=== PATIENT | male | born 1930 | race Caucasian/White ===

== ENCOUNTER 2020-05-06 14:30 | Emergency (ER) | payer MEDICARE, OTHER ==
[~2020-05-06] VITALS: Ht 177.8 cm; Wt 80.2 kg
--- NOTE | 2020-05-06 14:48 | PHYS DOC ---
Past History Past Medical History: A-Fib, High Cholesterol, Hypertension Smoking: Non-smoker Alcohol Use: None Drug Use: None General Adult EDM: Chief Complaint: MECHANICAL FALL HPI: HPI: Patient is a 89-year-old male who felt dizzy and had a syncopal event at [facility] today. Patient fell and hit his left side of his face. Patient has a history of A. fib and is anticoagulated. Patient denies any recent illnesses such as fever, chills, cough, vomiting, diarrhea or blood in the stools. Patient describes mild pain on the left side of his face. Patient does have some nausea now Review of Systems: Review of Systems: Constitutional: Denies fever or chills Eyes: Denies change in visual acuity HENT: Denies nasal congestion or sore throat Respiratory: Denies cough or shortness of breath Cardiovascular: Denies chest pain or edema GI: Denies abdominal pain, , vomiting, bloody stools or diarrhea, patient does have some nausea : Denies dysuria Musculoskeletal: Denies back pain or joint pain Integument: Denies rash Neurologic: Complains of mild headache but no focal weakness or sensory changes Endocrine: Denies polyuria or polydipsia Lymphatic: Denies swollen glands Psychiatric: Denies depression or anxiety Current Medications: Current Meds: Current Medications Ondansetron HCl (Zofran) 4 mg 1X ONCE IVP Last administered on 05/06/20at 15:42; Start 05/06/20 at 15:15; Stop 05/06/20 at 15:16; Status DC Allergies: Allergies: Allergies Coded Allergies Type Severity Reaction Last Updated Verified Sfetlsv-Cya-Qco Reductase Inhibitor Allergy Unknown 05/06/20 Yes Physical Exam: PE: Constitutional: Well developed, well nourished, no acute distress, non-toxic appearance. [] HENT: Small abrasion to the left side of the face., No trismus, no malocclusion, no septal hematoma, dried blood present in both nares. Swelling to the left side of the face with some ecchymosis. No obvious hemotympanum Eyes: PERRLA, EOMI, conjunctiva normal, no discharge. [] Neck: Normal range of motion, no tenderness, supple, no stridor. [] Cardiovascular: Bradycardic, irregularly irregular, peripheral pulses intact Lungs & Thorax: Bilateral breath sounds clear, no respiratory distress Abdomen: soft, no tenderness, no masses, no pulsatile masses. [] Skin: Warm, dry, no erythema, no rash. Abrasion to left side of face Back: No tenderness, no CVA tenderness. [] Extremities: Small abrasion right elbow, no cyanosis, no clubbing, ROM intact, no edema. [] Neurologic: Alert and oriented X 3, normal motor function, normal sensory function, no focal deficits noted. [] Psychologic: Affect normal, judgement normal, mood normal. [] Current Patient Data: Labs: Laboratory Tests Test 05/06/20 14:45 White Blood Count 4.6 x10^3/uL Red Blood Count 3.49 x10^6/uL Hemoglobin 10.0 g/dL Hematocrit 31.0 % Mean Corpuscular Volume 89 fL Mean Corpuscular Hemoglobin 29 pg Mean Corpuscular Hemoglobin Concent 32 g/dL Red Cell Distribution Width 19.8 % Platelet Count 206 x10^3/uL Neutrophils (%) (Auto) 61 % Lymphocytes (%) (Auto) 28 % Monocytes (%) (Auto) 10 % Eosinophils (%) (Auto) 1 % Basophils (%) (Auto) 1 % Neutrophils # (Auto) 2.8 x10^3uL Lymphocytes # (Auto) 1.3 x10^3/uL Monocytes # (Auto) 0.4 x10^3/uL Eosinophils # (Auto) 0.0 x10^3/uL Basophils # (Auto) 0.0 x10^3/uL Prothrombin Time 24.9 SEC Prothromb Time International Ratio 2.5 Activated Partial Thromboplast Time 30 SEC Sodium Level 140 mmol/L Potassium Level 4.6 mmol/L Chloride Level 102 mmol/L Carbon Dioxide Level 31 mmol/L Anion Gap 7 Blood Urea Nitrogen 26 mg/dL Creatinine 1.8 mg/dL Estimated GFR (Cockcroft-Gault) 35.9 BUN/Creatinine Ratio 14 Glucose Level 132 mg/dL Calcium Level 10.2 mg/dL Total Bilirubin 1.7 mg/dL Aspartate Amino Transf (AST/SGOT) 28 U/L Alanine Aminotransferase (ALT/SGPT) 30 U/L Alkaline Phosphatase 201 U/L Troponin I Quantitative < 0.017 ng/mL Total Protein 7.8 g/dL Albumin 2.9 g/dL Albumin/Globulin Ratio 0.6 Current Medications Medications (Trade) Dose Ordered Sig/Romy Route PRN Reason Start Time Stop Time Status Last Admin Dose Admin Ondansetron HCl (Zofran) 4 mg 1X ONCE IVP 05/06/20 15:15 05/06/20 15:16 DC 05/06/20 15:42 Vital Signs: Vital Signs Date Time Temp Pulse Resp B/P (MAP) Pulse Ox O2 Delivery O2 Flow Rate FiO2 05/06/20 14:30 98.4 66 20 182/70 (107) 98 Room Air EKG: EKG: [] EKG interpreted by me atrial fibrillation with a rate of 57 left axis deviation PVCs, nonspecific ST changes Radiology/Procedures: Radiology/Procedures: [][address] [address] IMAGING REPORT Signed PATIENT: THANIA NICOLE ACCOUNT: [id number] : 1930 LOCATION: ER AGE: 89 SEX: M EXAM STATUS: REG ER ORD. PHYSICIAN: HERRERA HIGGINBOTHAM MD REASON: fall, facial injury left side PROCEDURE: CT HEAD AND MAXILLOFACIAL WO Exam: CT head and maxillofacial without contrast INDICATION: Fall, facial injury TECHNIQUE: Sequential axial images through the head and face were obtained without the administration of IV contrast. Comparisons: None FINDINGS: Head: No focal parenchymal lesion or hemorrhage is identified. There is no midline shift or sulcal effacement. Patchy hypodensity in the periventricular white matter. No acute vascular territory infarction is identified. Serrato-white distinction is preserved. The ventricular system is within normal limits without compression hydrocephalus. The basal cisterns are well maintained. Face Extra cranial soft tissue scalp contusion/hematoma overlying the left parietal region. Hemorrhage is noted layering within the left maxillary sinus. There is a comminuted multipart fracture involving the left zygomatic arch. There is fractures involving the anterior, posterior ramos of the left maxillary sinus. Additionally there is a fracture involving the lateral wall of the left orbit. Globes and intraorbital contents are normal. IMPRESSION: 1. Comminuted multipart fracture involving the left sciatic arch. 2. Fractures of the anterior and posterior wall of the left maxillary sinus. Hemorrhage is noted layering within the maxillary sinus. 3. Fracture involving the lateral wall of the left orbit. Globes and intraorbital contents are normal. 4. No acute intracranial abnormality. Exposure: One or more of the following in the visualized dose reduction techniques were utilized for this examination: 1. Automated exposure control 2. Adjustment of the MA and/or KV according to patient size Use of iterative of reconstructive technique Electronically signed by: Lavinia Mcintyre MD (05/06/2020 3:19 PM) [facility]ED WITH [facility] DICTATED AND SIGNED BY: LAVINIA MCINTYRE MD DATE: 05/06/202 CC: HERRERA HIGGINBOTHAM MD; PCP,NO ~ [address] [address] IMAGING REPORT Signed PATIENT: THANIA NICOLE ACCOUNT: [id number] : 1930 LOCATION: ER AGE: 89 SEX: M EXAM STATUS: REG ER ORD. PHYSICIAN: HERRERA HIGGINBOTHAM MD REASON: syncope PROCEDURE: PORTABLE CHEST 1V EXAM: PORTABLE CHEST 1V INDICATION: Reason: syncope / Spl. Instructions: / History: . TECHNIQUE: Single view COMPARISON: None FINDINGS: The heart size is upper normal in size.. The great vessels show aortic calcifications. There is no hilar or mediastinal mass. Lungs show prominence of the pulmonary interstitium bilaterally. There is no pleural effusion or pneumothorax. There are no significant osseous abnormalities. IMPRESSION: Upper normal heart size with prominence of the bilateral pulmonary interstitium, suggestive of pulmonary vascular congestion with interstitial pattern pulmonary edema. Electronically signed by: Marie Morales MD (05/06/2020 3:30 PM) [id number] DICTATED AND SIGNED BY: MARIE MORALES MD DATE: 05/06/20 1535 CC: HERRERA HIGGINBOTHAM MD; PCP,NO ~ [address] [address] IMAGING REPORT Signed PATIENT: THANIA NICOLE ACCOUNT: [id number] : 1930 LOCATION: ER AGE: 89 SEX: M EXAM STATUS: REG ER ORD. PHYSICIAN: HERRERA HIGGINBOTHAM MD REASON: fall, facial trauma PROCEDURE: CT CERVICAL SPINE WO CONTRAST Exam: CT cervical spine without contrast INDICATION: Fall, facial trauma TECHNIQUE: Sequential axial images through the cervical obtained without IV contrast. Sagittal and coronal reformatted images were reconstructed from the axial data and reviewed. Comparisons: None FINDINGS: Vertebral body heights and alignment are well-maintained. Fracture to the cervical spine is not identified. 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 Mild bilateral facet arthropathy is also noted in cervical spine. Small right pleural effusion. IMPRESSION: Negative CT C-spine for acute traumatic injury. Exposure: One or more of the following in the visualized dose reduction techniques were utilized for this examination: 1. Automated exposure control 2. Adjustment of the MA and/or KV according to patient size 3. Use of iterative of reconstructive technique Electronically signed by: Lavinia Mcintyre MD (05/06/2020 4:12 PM) [facility] DICTATED AND SIGNED BY: LAVINIA MCINTYRE MD DATE: 05/06/201611 CC: HERRERA HIGGINBOTHAM MD; PCP,NO ~ Heart Score: Risk Factors: Risk Factors: DM, Current or recent (<one month) smoker, HTN, HLP, family history of CAD, obesity. Risk Scores: Score 0 - 3: 2.5% MACE over next 6 weeks - Discharge Home Score 4 - 6: 20.3% MACE over next 6 weeks - Admit for Clinical Observation Score 7 - 10: 72.7% MACE over next 6 weeks - Early Invasive Strategies Course & Med Decision Making: Course & Med Decision Making Pertinent Labs and Imaging studies reviewed. (See chart for details) [] 89-year-old male with a syncopal event. Patient fell and struck his head. Patient has contusions and small abrasion to the left cheek. CT reveals multiple fractures. Patient will need to be admitted for his syncope and due to the multiple facial fractures will need to be transferred to a trauma center. I discussed the case with Dr. Lara at [facility] who accepted transfer. Head CT done due to patient's age and being on Coumadin. Dragon Disclaimer: Dragon Disclaimer: This electronic medical record was generated, in whole or in part, using a voice recognition dictation system. Departure Departure: Impression: Primary Impression: Syncope Additional Impressions: Multiple facial fractures Head injury Disposition: 02 DC/TRF OTHER SHORT TERM HOS ([facility]) Condition: STABLE HERRERA HIGGINBOTHAM MD May 06, 2020 14:48
[2020-05-06 15:05] LABS: BASO % 1 % (0-3); EOS % 1 % (0-3); LYMPH # 1.3 x10^3/uL (1.0-4.8); LYMPH % 28 % (24-48); MEAN CORPUSCULAR HEMOGLOBIN 29 pg (25-35); MEAN CORPUSCULAR HGB CONC 32 g/dL (31-37); MEAN CORPUSCULAR VOLUME 89 fL (79-100); MONO # 0.4 x10^3/uL (0.0-1.1); MONO % 10 % (0-9); NEUT # 2.8 x10^3uL (1.8-7.7); NEUT % 61 % (31-73); PLATELET COUNT 206 x10^3/uL (140-400); RED BLOOD COUNT 3.49 x10^6/uL (4.30-5.70); RED CELL DISTRIBUTION WIDTH 19.8 % (11.5-14.5); WHITE BLOOD COUNT 4.6 x10^3/uL (4.0-11.0)
--- NOTE | 2020-05-06 15:14 | EKG ---
[address] [address] Test Date: 2020-05-06 Test Time: 14:39:37 Pat Name: THANIA NICOLE Department: Room: Gender: M Apns: ESDRAS : 1930 Requested By: HERRERA HIGGINBOTHAM Order Number: [id number] Reading MD: Measurements Intervals Bryant Rate: 57 P: OH: QRS: -40 QRSD: 108 T: 4 QT: 422 QTc: 414 Interpretive Statements IRREGULAR RHYTHM, NO P-WAVE FOUND VENTRICULAR PREMATURE COMPLEX(ES) ABNORMAL LEFT AXIS DEVIATION LEFT ANTERIOR FASCICULAR BLOCK QRS(T) CONTOUR ABNORMALITY CONSISTENT WITH ANTERIOR INFARCT AGE UNDETERMINED ABNORMAL ECG RI6.02 No previous ECG available for comparison
[2020-05-06] MEDS ORDERED: ONDANSETRON PF 4 MG/2 ML VIAL. IVP ONE (15:15)
--- NOTE | 2020-05-06 15:22 | RAD ---
Exam: CT head and maxillofacial without contrast INDICATION: Fall, facial injury TECHNIQUE: Sequential axial images through the head and face were obtained without the administration of IV contrast. Comparisons: None FINDINGS: Head: No focal parenchymal lesion or hemorrhage is identified. There is no midline shift or sulcal effacement. Patchy hypodensity in the periventricular white matter. No acute vascular territory infarction is identified. Serrato-white distinction is preserved. The ventricular system is within normal limits without compression hydrocephalus. The basal cisterns are well maintained. Face Extra cranial soft tissue scalp contusion/hematoma overlying the left parietal region. Hemorrhage is noted layering within the left maxillary sinus. There is a comminuted multipart fracture involving the left zygomatic arch. There is fractures involving the anterior, posterior ramos of the left maxillary sinus. Additionally there is a fracture involving the lateral wall of the left orbit. Globes and intraorbital contents are normal. IMPRESSION: 1. Comminuted multipart fracture involving the left sciatic arch. 2. Fractures of the anterior and posterior wall of the left maxillary sinus. Hemorrhage is noted layering within the maxillary sinus. 3. Fracture involving the lateral wall of the left orbit. Globes and intraorbital contents are normal. 4. No acute intracranial abnormality. Exposure: One or more of the following in the visualized dose reduction techniques were utilized for this examination: 1. Automated exposure control 2. Adjustment of the MA and/or KV according to patient size Use of iterative of reconstructive technique Electronically signed by: Lavinia Black MD (05/06/2020 3:19 PM) [facility]
--- NOTE | 2020-05-06 15:33 | RAD ---
EXAM: PORTABLE CHEST 1V INDICATION: Reason: syncope / Spl. Instructions: / History: . TECHNIQUE: Single view COMPARISON: None FINDINGS: The heart size is upper normal in size.. The great vessels show aortic calcifications. There is no hilar or mediastinal mass. Lungs show prominence of the pulmonary interstitium bilaterally. There is no pleural effusion or pneumothorax. There are no significant osseous abnormalities. IMPRESSION: Upper normal heart size with prominence of the bilateral pulmonary interstitium, suggestive of pulmonary vascular congestion with interstitial pattern pulmonary edema. Electronically signed by: Alex Morales MD (05/06/2020 3:30 PM) [id number]
[2020-05-06 15:34] LABS: CALCIUM 10.2 mg/dL (8.5-10.1); CREATININE 1.8 mg/dL (0.7-1.3); GFR 35.9; POTASSIUM 4.6 mmol/L (3.5-5.1)
[2020-05-06 15:39] LABS: ALBUMIN 2.9 g/dL (3.4-5.0); ALBUMIN/GLOBULIN RATIO 0.6 (1.0-1.7); TOTAL BILIRUBIN 1.7 mg/dL (0.2-1.0); TOTAL PROTEIN 7.8 g/dL (6.4-8.2)
--- NOTE | 2020-05-06 16:15 | RAD ---
Exam: CT cervical spine without contrast INDICATION: Fall, facial trauma TECHNIQUE: Sequential axial images through the cervical obtained without IV contrast. Sagittal and coronal reformatted images were reconstructed from the axial data and reviewed. Comparisons: None FINDINGS: Vertebral body heights and alignment are well-maintained. Fracture to the cervical spine is not identified. 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 Mild bilateral facet arthropathy is also noted in cervical spine. Small right pleural effusion. IMPRESSION: Negative CT C-spine for acute traumatic injury. Exposure: One or more of the following in the visualized dose reduction techniques were utilized for this examination: 1. Automated exposure control 2. Adjustment of the MA and/or KV according to patient size 3. Use of iterative of reconstructive technique Electronically signed by: Lavinia Black MD (05/06/2020 4:12 PM) [facility]
[2020-05-06] MEDS ORDERED: CLINDAMYCIN 600MG PREMIX 50 ML IV ONE (18:00)
[2020-05-06] MEDS ORDERED: MORPHINE SULFATE 2 MG/ML DISP.SYRIN. IV ONE (18:00)
[2020-05-06 18:31] VITALS: BP 174/100
== END 2020-05-06 19:00 | disposition short-term general hospital (02) ==
LOC: ER 14:30
DX: S02.40FA Zygomatic fracture, left side, initial encounter for closed fracture (principal); S02.40DA Maxillary fracture, left side, initial encounter for closed fracture; S02.842A Fracture of lateral orbital wall, left side, initial encounter for closed fracture; R55 Syncope and collapse; S50.311A Abrasion of right elbow, initial encounter; I48.91 Unspecified atrial fibrillation; E78.00 Pure hypercholesterolemia, unspecified; I10 Essential (primary) hypertension; Z88.8 Allergy status to other drugs, medicaments and biological substances; W18.39XA Other fall on same level, initial encounter; Y93.89 Activity, other specified; Y92.89 Other specified places as the place of occurrence of the external cause; Y99.8 Other external cause status
CPT/HCPCS: 36415; 70450; 70486; 71045; 72125; 80053; 84484; 85025; 85610; 85730; 93005; 96365; 96375; 99285; J2270; J2405; J3490

== ENCOUNTER 2020-06-13 10:42 | Emergency (ER) | payer MEDICARE, OTHER ==
[~2020-06-13] VITALS: Ht 177.8 cm; Wt 79.8 kg
--- NOTE | 2020-06-13 10:50 | PHYS DOC ---
Past History Past Medical History: A-Fib, High Cholesterol, Hypertension Past Surgical History: Other Additional Past Surgical Histo: RIGHT KNEE Smoking: Non-smoker Alcohol Use: None Drug Use: None Adult General HPI HPI Patient is a 89-year-old male presenting via EMS for decreased mentation. Patient's baseline is usually walking and talking and performing all activities of daily living, nonetheless, he is talking in few word sentences today and an unreliable historian. As such, EMS are primary historians stating patient was recently discharged from [facility] after admission for " several heart attacks". He has history of cardiac stenting and pacemaker placed. Was at home this morning participating in Zoom outpatient follow-ups with other family members present when he was seen to be extremely lethargic and slow to respond to verbal stimuli which is unlike him. It was recommended that he be transported to [facility] for immediate evaluation; however, given mentation there was concerned about hasty deterioration and so patient was brought to our facility for evaluation. On arrival, patient GCS 13, he is speaking in few word sentences only, he is alert to person but not place and time. He denies being in any pain. Per report, there were discussions about hospice but at this time it is unknown what his CODE STATUS is, he will be treated as a full code until proven otherwise Further history elicited from son who is present with patient during Zoom conference this morning. Son is very anxious about his father's health, states that his father had pacemaker and "a lot of heart stuff "done during recent admission to [facility] with discharge home 06/10/2020. Son states patient has not been himself since discharge home. States patient also had kidney abnormalities, " his number was a 2.1 and normal they told me was 1", sounds like an KOSTA? Reports that patient has been having increased visual hallucinations while at home grabbing at objects that are not present in ad dition to having observed hypoxic episodes. Patient typically on 4 L supplemental oxygen via nasal cannula but has been taking this off the past couple of nights. Son is adamant about transfer to [facility], states he is on the phone with his doctor, Dr. Gold Review of Systems Review of Systems Fourteen body systems of review of systems have been reviewed. See HPI for pertinent positives and negative responses, other ndiaye all other systems are negative, non-pertinent or non-contributory Allergies Allergies Allergies Coded Allergies Type Severity Reaction Last Updated Verified Ocddiia-Try-Sgd Reductase Inhibitor Allergy Unknown 05/06/20 Yes Physical Exam Physical Exam Constitutional: Pt is oriented to person only not time or place. Verbal responses slow, speaks in few word sentences only. HENT: Head: Normocephalic Mouth/Throat: Oropharynx is clear and moist. No hematomas or lacerations or abrasions to face or scalp OP clear, no blood, no malocclusion, dentition intact Nares clear, upplemental oxygen in place via nasal cannula External ears unremarkable negative harper sign Eyes: Conjunctivae and EOM are normal. Pupils are equal, round, and reactive to light. Neck: C-spine midline nontender, no step-offs Cardiovascular: Normal rate, irregular rhythm Pulmonary/Chest: Effort normal, Rales present in bilateral lower lung [place], no respiratory distress. No wheezes. CTA bilaterally Abdominal: Soft. Bowel sounds are normal. Pt exhibits no distension. There is no tenderness. Musculoskeletal: No bony tenderness to extremities, no deformities, full ROM extremities Chest wall stable Pelvis stable and non-tender No vertebral TTP and spine without stepoffs Neurological: Pt is alert and oriented to person only, not at his baseline per son Moving all extremities willfully, able to wiggle all fingers and toes Sensation intact, can discriminate between light and painful stimuli Skin: Skin is warm and dry. No abrasions, no lacerations Psychiatric: Unable to fully assess Nursing note and vitals reviewed. Current Patient Data Vital Signs Vital Signs Date Time Temp Pulse Resp B/P (MAP) Pulse Ox O2 Delivery O2 Flow Rate FiO2 06/13/20 11:45 70 18 141/83 (102) 100 Nasal Cannula 4.0 06/13/20 10:42 98.2 Lab Results Laboratory Tests Test 06/13/20 10:54 06/13/20 11:27 06/13/20 12:10 White Blood Count 9.2 x10^3/uL (4.0-11.0) Red Blood Count 3.76 x10^6/uL (4.30-5.70) Hemoglobin 10.9 g/dL (13.0-17.5) Hematocrit 35.2 % (39.0-53.0) Mean Corpuscular Volume 94 fL (79-100) Mean Corpuscular Hemoglobin 29 pg (25-35) Mean Corpuscular Hemoglobin Concent 31 g/dL (31-37) Red Cell Distribution Width 23.9 % (11.5-14.5) Platelet Count 85 x10^3/uL (140-400) Neutrophils (%) (Auto) 84 % (31-73) Lymphocytes (%) (Auto) 10 % (24-48) Monocytes (%) (Auto) 7 % (0-9) Eosinophils (%) (Auto) 0 % (0-3) Basophils (%) (Auto) 0 % (0-3) Neutrophils # (Auto) 7.7 x10^3uL (1.8-7.7) Lymphocytes # (Auto) 0.9 x10^3/uL (1.0-4.8) Monocytes # (Auto) 0.6 x10^3/uL (0.0-1.1) Eosinophils # (Auto) 0.0 x10^3/uL (0.0-0.7) Basophils # (Auto) 0.0 x10^3/uL (0.0-0.2) Platelet Estimate Decreased (ADEQUATE) Anisocytosis Slight Tear Drop Cells Occ Ovalocytes Occ Sodium Level 146 mmol/L (136-145) Potassium Level 4.4 mmol/L (3.5-5.1) Chloride Level 106 mmol/L (98-107) Carbon Dioxide Level 30 mmol/L (21-32) Anion Gap 10 (6-14) Blood Urea Nitrogen 80 mg/dL (8-26) Creatinine 2.7 mg/dL (0.7-1.3) Estimated GFR (Cockcroft-Gault) 22.5 BUN/Creatinine Ratio 30 (6-20) Glucose Level 146 mg/dL (70-99) Calcium Level 10.1 mg/dL (8.5-10.1) Magnesium Level 2.7 mg/dL (1.8-2.4) Total Bilirubin 2.7 mg/dL (0.2-1.0) Aspartate Amino Transf (AST/SGOT) 33 U/L (15-37) Alanine Aminotransferase (ALT/SGPT) 23 U/L (16-63) Alkaline Phosphatase 154 U/L (46-116) Ammonia 22 mcmol/L (11-34) Creatine Kinase 70 U/L (39-308) Troponin I Quantitative 0.022 ng/mL (0-0.055) EE-Rai-W-Type Natriuretic Peptide 42720 pg/mL (0-449) Total Protein 7.5 g/dL (6.4-8.2) Albumin 3.0 g/dL (3.4-5.0) Albumin/Globulin Ratio 0.7 (1.0-1.7) Blood Gas pH 7.41 (7.35-7.46) Blood Gas PCO2 50 mmHg (35-46) Blood Gas PO2 155 mmHg (71-100) Blood Gas HCO3 31 mmol/L (21-28) Arterial Bld O2 Saturation (Calc) 99 % (92-99) FiO2 35 % Urine Collection Type Unknown Urine Color Yellow Urine Clarity Hazy Urine pH 5.0 Urine Specific [place] 1.020 Urine Protein 30 mg/dl (NEG-TRACE) Urine Glucose (UA) Neg mg/dL (NEG) Urine Ketones (Stick) Neg mg/dL (NEG) Urine Blood Large (NEG) Urine Nitrite Neg (NEG) Urine Bilirubin Neg (NEG) Urine Urobilinogen Dipstick 1.0 mg/dL (0.2 mg/dL) Urine Leukocyte Esterase Small (NEG) Urine RBC 11-20 /HPF (0-2) Urine WBC 20-40 /HPF (0-4) Urine Squamous Epithelial Cells Occ /LPF Urine Bacteria Many /HPF (0-FEW) Urine Hyaline Casts Few /HPF EKG EKG EKG ordered and interpreted by myself at 1100 hrs. as atrial fibrillation with an average ventricular rate of 66 bpm, prolonged QTC at 524 and prolonged QRS at 178, left axis deviation, no acute ischemic findings, no STEMI Repeat EKG ordered and interpreted by myself at 1308 hrs. as atrial fibrillation with a ventricularly paced beat at 73 bpm, wide QRS 246 and prolonged QTC 529, left axis deviation, no acute ischemic findings, no gross change compared to prior EKG performed in our facility, no STEMI Radiology/Procedures Radiology/Procedures EXAM: Head CT without contrast. HISTORY: Decreased mentation. TECHNIQUE: Computed tomographic images of the head were obtained without contrast. *One or more of the following individualized dose reduction techniques were utilized for this examination: 1. Automated exposure control. 2. Adjustment of the mA and/or kV according to patient size. 3. Use of iterative reconstruction technique. COMPARISON: 05/06/2020. FINDINGS: There is no acute intracranial hemorrhage. There is no mass effect or midline shift. There is no hydrocephalus. There is cerebral volume loss. There are areas of hypodensity within the cerebral white matter due to chronic small vessel disease. There is evidence of lens surgery. There is left maxillary sinus mucosal thickening and there are displaced left maxillary sinus, lateral left orbital wall and zygomatic arch fractures, unchanged compared to the prior CT. The mastoid air cells are clear. There is a small posterior left periorbital soft tissue hematoma. The previously demonstrated left maxillary sinus hemorrhage has resolved. IMPRESSION: 1. No acute intracranial finding. 2. Bilateral cerebral white matter changes, likely due to chronic small vessel disease. 3. Left maxillary sinus wall and zygomatic arch fractures and left lateral orbital wall fracture, partially changed compared to the prior CT. There is a small posterior left periorbital soft tissue hematoma. Electronically signed by: Mel Benavidez MD (06/13/2020 11:27 AM) [facility] PORTABLE CHEST 1V History: Reason: dec mentation / Spl. Instructions: / History: Comparison: May 06, 2020 Findings: Multifocal ill-defined opacities bilaterally most prominent within the lung bases. No pleural effusion. No pneumothorax. Possible small left pleural effusion. Unchanged heart size. Prior granulomatous disease within the chest. Impression: 1. Multifocal ill-defined opacities, concerning for pneumonia including viral pneumonia or pulmonary edema. 2. Possible small left pleural effusion. Electronically signed by: Jacobo Craig DO (06/13/2020 11:34 AM) [id number] Heart Score HEART Score for Chest Pain: HEART Score for Chest Pain Response (Comments) Value History Moderately Suspicious 1 ECG Nonspecific Repolarizatio 1 Age > 65 2 Risk Factors >3 Risk Factors or Hx CAD 2 Troponin < Normal Limit 0 Total 6 Risk Factors: Risk Factors: DM, Current or recent (<one month) smoker, HTN, HLP, family history of CAD, obesity. Risk Scores: Risk Factors: DM, Current or recent (<one month) smoker, HTN, HLP, family history of CAD, obesity. Course & Med Decision Making Course & Med Decision Making Pertinent Labs and Imaging studies reviewed. (See chart for details) Discussed most likely diagnosis of hypoactive delirium. Etiology at this time is not definite. Patient does appear clinically volume overloaded, 40 mg IV Lasix administered. No other obvious infectious/emergent/surgical pathology present but pt is not fit for discharge home in current condition [facility] was contacted given limited patient information/past medical history, I presented case and patient was subsequently accepted for transfer for further inpatient work-up and medical management under the care of Dr. Pina I discussed plan of care with patient and son, both of which were amenable. All questions and concerns addressed prior to ER transport in stable condition Dragon Disclaimer Dragon Disclaimer This electronic medical record was generated, in whole or in part, using a voice recognition dictation system. 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
[2020-06-13 11:22] LABS: BASO % 0 % (0-3); EOS % 0 % (0-3); HEMATOCRIT 35.2 % (39.0-53.0); HEMOGLOBIN 10.9 g/dL (13.0-17.5); LYMPH # 0.9 x10^3/uL (1.0-4.8); LYMPH % 10 % (24-48); MEAN CORPUSCULAR HEMOGLOBIN 29 pg (25-35); MEAN CORPUSCULAR HGB CONC 31 g/dL (31-37); MEAN CORPUSCULAR VOLUME 94 fL (79-100); MONO # 0.6 x10^3/uL (0.0-1.1); MONO % 7 % (0-9); NEUT # 7.7 x10^3uL (1.8-7.7); NEUT % 84 % (31-73); PLATELET COUNT 85 x10^3/uL (140-400); RED BLOOD COUNT 3.76 x10^6/uL (4.30-5.70); RED CELL DISTRIBUTION WIDTH 23.9 % (11.5-14.5); WHITE BLOOD COUNT 9.2 x10^3/uL (4.0-11.0)
--- NOTE | 2020-06-13 11:30 | RAD ---
EXAM: Head CT without contrast. HISTORY: Decreased mentation. TECHNIQUE: Computed tomographic images of the head were obtained without contrast. *One or more of the following individualized dose reduction techniques were utilized for this examination: 1. Automated exposure control. 2. Adjustment of the mA and/or kV according to patient size. 3. Use of iterative reconstruction technique. COMPARISON: 05/06/2020. FINDINGS: There is no acute intracranial hemorrhage. There is no mass effect or midline shift. There is no hydrocephalus. There is cerebral volume loss. There are areas of hypodensity within the cerebral white matter due to chronic small vessel disease. There is evidence of lens surgery. There is left maxillary sinus mucosal thickening and there are displaced left maxillary sinus, lateral left orbital wall and zygomatic arch fractures, unchanged compared to the prior CT. The mastoid air cells are clear. There is a small posterior left periorbital soft tissue hematoma. The previously demonstrated left maxillary sinus hemorrhage has resolved. IMPRESSION: 1. No acute intracranial finding. 2. Bilateral cerebral white matter changes, likely due to chronic small vessel disease. 3. Left maxillary sinus wall and zygomatic arch fractures and left lateral orbital wall fracture, partially changed compared to the prior CT. There is a small posterior left periorbital soft tissue hematoma. Electronically signed by: Mel Benavidez MD (06/13/2020 11:27 AM) [facility]
[2020-06-13 11:33] LABS: CALCIUM 10.1 mg/dL (8.5-10.1); CREATININE 2.7 mg/dL (0.7-1.3); GFR 22.5; POTASSIUM 4.4 mmol/L (3.5-5.1)
--- NOTE | 2020-06-13 11:36 | RAD ---
PORTABLE CHEST 1V History: Reason: dec mentation / Spl. Instructions: / History: Comparison: May 06, 2020 Findings: Multifocal ill-defined opacities bilaterally most prominent within the lung bases. No pleural effusion. No pneumothorax. Possible small left pleural effusion. Unchanged heart size. Prior granulomatous disease within the chest. Impression: 1. Multifocal ill-defined opacities, concerning for pneumonia including viral pneumonia or pulmonary edema. 2. Possible small left pleural effusion. Electronically signed by: Jacobo Craig DO (06/13/2020 11:34 AM) [id number]
[2020-06-13 11:46] LABS: ALBUMIN/GLOBULIN RATIO 0.7 (1.0-1.7); MAGNESIUM 2.7 mg/dL (1.8-2.4); TOTAL BILIRUBIN 2.7 mg/dL (0.2-1.0); TOTAL PROTEIN 7.5 g/dL (6.4-8.2)
[2020-06-13 11:55] LABS: ANISOCYTOSIS SLIGHT; OVALOCYTES OCC; PLT ESTIMATE DECREASED (ADEQUATE); TEAR DROP CELLS OCC
[2020-06-13] MEDS ORDERED: CARV25TA2 PO (11:59)
[2020-06-13] MEDS ORDERED: FURO40SO5 PO (12:01)
[2020-06-13] MEDS ORDERED: APIX2.5T PO (12:02)
[2020-06-13] MEDS ORDERED: PRAV20TA2 PO (12:03)
[2020-06-13] MEDS ORDERED: TRAZ-125 PO (12:05)
[2020-06-13] MEDS ORDERED: FUROSEMIDE 40 MG/4 ML VIAL IVP ONE (12:30)
[2020-06-13 12:33] LABS: BGAS PH 7.41 (7.35-7.46)
[2020-06-13 12:44] LABS: BILIRUBIN,URINE NEG (NEG); CLARITY,URINE HAZY; COLOR,URINE YELLOW; GLUCOSE,URINE NEG (NEG); NITRITE,URINE NEG (NEG); WBC,URINE 20-40 /HPF (0-4)
[2020-06-13 12:45] LABS: BACTERIA,URINE MANY /HPF (0-FEW); HYALINE CASTS, URINE FEW /HPF; SQUAMOUS EPITHELIAL CELL,UR OCC /LPF
--- NOTE | 2020-06-13 16:50 | EKG ---
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
--- NOTE | 2020-06-13 16:50 | EKG ---
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
[2020-06-13 18:45] VITALS: BP 130/75
== END 2020-06-13 19:59 | disposition short-term general hospital (02) ==
LOC: ER 10:42
DX: R41.0 Disorientation, unspecified (principal); I25.10 Atherosclerotic heart disease of native coronary artery without angina pectoris; I45.81 Long QT syndrome; I48.91 Unspecified atrial fibrillation; E78.00 Pure hypercholesterolemia, unspecified; I10 Essential (primary) hypertension; Z95.0 Presence of cardiac pacemaker; Z88.8 Allergy status to other drugs, medicaments and biological substances
CPT/HCPCS: 36415; 51702; 70450; 71045; 80053; 81001; 82140; 82550; 82803; 83605; 83735; 83880; 84484; 85025; 87040; 87086; 93005; 96374; 99285; J1940